=== PATIENT | male | born 2000 | race Caucasian/White ===

== ENCOUNTER 2023-06-13 11:52 | Emergency (ER) | payer OTHER ==
[~2023-06-13] VITALS: Ht 182.9 cm; Wt 78.6 kg
[2023-06-13] MEDS ORDERED: IBUPROFEN 800 MG TAB PO ONE (13:45)
[2023-06-13 14:32] VITALS: BP 121/60; TEMP 100; O2SAT 100
== END 2023-06-13 14:34 | disposition home or self-care (01) ==
LOC: M ED 11:52
DX: R50.9 Fever, unspecified (principal); R05.9 Cough, unspecified; B34.8 Other viral infections of unspecified site; B34.1 Enterovirus infection, unspecified; F17.290 Nicotine dependence, other tobacco product, uncomplicated; J45.909 Unspecified asthma, uncomplicated